=== PATIENT | female | born 1980 | race Caucasian/White ===

== ENCOUNTER 2022-03-02 16:17 | Emergency (ER) | payer SELFPAY ==
--- OUTSIDE RECORDS SUMMARY | 2022-03-02 16:19 | XMS REPORT | Continuity of Care Document ---
:1980 Author Organization [facility] t Address [address] [place] [address] Care Team Providers Name Role Phone MARQUISETAMARAJESSIKA Primary Care Physician Unavailable Manisha REAL Attending Clinician Unavailable Shade KING, S Attending Clinician Milton BRAND S Attending Clinician Manisha WOLF Attending Clinician Unavailable Doctor Unassigned, Name Attending Clinician Unavailable Mag MATA Attending Clinician Unavailable Esperanza KING, L Attending Clinician Payers Payer Name Policy Type Policy Number Effective Date Expiration Date Manisha BARKLEY II [id number] 2016 00:00:00 Problems Condition Condition Condition Status Onset Resolution Last Treating Co mments Source Name Details Category Date Date Treatment Clinician Date No known No known Disease Unive rs active active ity of problems problems [facility] Allergies, Adverse Reactions, Alerts Allergy Allergy Status Severity Reaction(s) Onset Inactive Treating Comm ents Source Name Type Date Date Clinician Fentanyl Propensi Active Palpitations 2016-09 Univers ty to 2-08 ity of adverse 00:00: [place] reaction 00 Medical s Branch FENTANYL DRUG Active Palpitations 2016-09 Un arya INGREDI 2-08 ity of 00:00: [place] [id number] [address] [place] Social History Social Habit Start Date Stop Date Quantity Comments Source Exposure to Unable to assess Univers ity of SARS-CoV-2 [facility] (event) Branch Tobacco use and 2020-10-31 2020-10-31 Never used Universit y of exposure 00:00:00 00:00:00 [facility] Sex Assigned At [birth year] Universit y of 00:00:00 00:00:00 [facility] Smoking Status Start Date Stop Date Source Never smoker [facility] Branch Medications Ordered Filled Start Stop Current Ordering Indication Dosage Frequency Signature Comments Components Source Medication Medication Date Date Medication? Clinician (SIG) Name Name traMADoL 50 2020-0 Yes 4647 50mg Take 1 Univ ers mg tablet 2-09 tablet by ity o f 00:00: mouth [place] 00 every 4 Medical (four) Branch hours as needed for Pain (scale 7-10). Indication s: acute pain traMADoL 50 2020-0 Yes 4647 50mg Take 1 Univ ers mg tablet 2-09 tablet by ity o f 00:00: mouth [place] 00 every 4 Medical (four) Branch hours as needed for Pain (scale 7-10). Indication s: acute pain traMADoL 50 2020-0 Yes 4647 50mg Take 1 Univ ers mg tablet 2-09 tablet by ity o f 00:00: mouth [place] 00 every 4 Medical (four) Branch hours as needed for Pain (scale 7-10). Indication s: acute pain traMADoL 50 2020-0 Yes 4647 50mg Take 1 Univ ers mg tablet 2-09 tablet by ity o f 00:00: mouth [place] 00 every 4 Medical (four) Branch hours as needed for Pain (scale 7-10). Indication s: acute pain traMADoL 50 2020-0 Yes 4647 50mg Take 1 Univ ers mg tablet 2-09 tablet by ity o f 00:00: mouth [place] 00 every 4 Medical (four) Branch hours as needed for Pain (scale 7-10). Indication s: acute pain traMADoL 50 2020-0 Yes 4647 50mg Take 1 Univ ers mg tablet 2-09 tablet by ity o f 00:00: mouth [place] 00 every 4 Medical (four) Branch hours as needed for Pain (scale 7-10). Indication s: acute pain traMADoL 50 2020-0 Yes 4647 50mg Take 1 Univ ers mg tablet 2-09 tablet by ity o f 00:00: mouth [place] 00 every 4 Medical (four) Branch hours as needed for Pain (scale 7-10). Indication s: acute pain traMADoL 50 2020-0 Yes 4647 50mg Take 1 Univ ers mg tablet 2-09 tablet by ity o f 00:00: mouth [place] 00 every 4 Medical (four) Branch hours as needed for Pain (scale 7-10). Indication s: acute pain traMADoL 50 2020-0 Yes 4647 50mg Take 1 Univ ers mg tablet 2-09 tablet by ity o f 00:00: mouth [place] 00 every 4 Medical (four) Branch hours as needed for Pain (scale 7-10). Indication s: acute pain traMADoL 50 2020-0 Yes 4647 50mg Take 1 Univ ers mg tablet 2-09 tablet by ity o f 00:00: mouth [place] 00 every 4 Medical (four) Branch hours as needed for Pain (scale 7-10). Indication s: acute pain traMADoL 50 2020-0 Yes 4647 50mg Take 1 Univ ers mg tablet 2-09 tablet by ity o f 00:00: mouth [place] 00 every 4 Medical (four) Branch hours as needed for Pain (scale 7-10). Indication s: acute pain Vital Signs Vital Name Observation Time Observation Value Comments Source Systolic blood 2021-05-01 154 mm[Hg] reports she is University of pressure 21:07:00 under a lot [place] Medical stress / no Branch repeat on b/p Diastolic blood 2021-05-01 106 mm[Hg] reports she is University of pressure 21:07:00 under a lot [place] Medical stress / no Branch repeat on b/p Heart rate 2021-05-01 75 /min University of 21:07:00 [facility] Body height 2021-05-01 165.1 cm University of 21:07:00 [facility] Body weight 2021-05-01 86.183 kg University of 21:07:00 [facility] BMI 2021-05-01 31.62 kg/m2 University of 21:07:00 [facility] Systolic blood 2020-11-24 124 mm[Hg] University of pressure 16:00:00 [facility] Diastolic blood 2020-11-24 83 mm[Hg] University o f pressure 16:00:00 [facility] Heart rate 2020-11-24 84 /min University of 16:00:00 [facility] Body height 2020-11-24 165.1 cm University of 16:00:00 [facility] Body weight 2020-11-24 87.544 kg University of 16:00:00 [facility] BMI 2020-11-24 32.12 kg/m2 University of 16:00:00 [facility] Procedures Procedure Date / Time Performed Performing Clinician Kavin e XR FOOT 3+ VW RIGHT 2021-05-01 20:48:10 Lia Wolf [facility] ASSIGNMENT OF BENEFITS 2021-05-01 20:21:23 Doctor Unassigned, No [facility] Name Medical Branch EXTERNAL PROVIDER 2020-11-13 06:01:00 Doctor Unassigned, No [facility] RECORDS Name Medical Branch XR HAND <3 VW RIGHT 2020-10-31 19:26:48 [facility] Start End Encounter Admission Attending Care Care Encounter Source Date/Time Date/Time Type Type Clinicians Facility Department ID 2021-09-02 2021-09-02 [facility] [id number] Univers 04:39:00 04:50:00 DENILSON [facility] 2021-09-02 2021-09-02 Emergency [facility] [id number] Univers 04:39:00 04:50:00 Denilson TAPIA [id number] [facility] [id number] [facility] [id number] [facility] [address] [place] 2021-05-01 2021-05-01 [facility] [id number] Univers 15:25:11 23:59:00 Encounter Lia Tapia [id number] ity of [place] 4.2.7.2.686 [facility] [phone] [facility] [address] [place] 2021-05-01 2021-05-01 Office [facility] [id number] Univers 15:58:04 16:45:09 Visit Lia Dyer [facility] [id number] it y of Surgical [id number] Krish as Specialti [phone] Pa dical es [address] [facility] 2021-05-01 2021-05-01 [facility]patient [facility] [id number] Univers 15:45:00 15:45:00 [facility] [id number] [place] [facility] 2021-05-01 2021-05-01 [facility] [id number] Univers 00:00:00 00:00:00 LIA [facility] 2021-05-01 2021-05-01 [facility] [id number] Univers 00:00:00 00:00:00 Lia [facility] [id number] it y of Surgical [id number] Krish as Specialti [phone] Pa dical es [address] [facility] 2021-05-01 2021-05-01 Orders Doctor DUC [id number] Univers 00:00:00 00:00:00 Only Unassigned, RENETTA [id number] ity of [place] [facility] 4.2.7.2.686 Krish as [id number] [address] 2020-11-24 2020-11-24 Outpatient [facility] [id number] Univers 10:31:25 23:59:00 PREM [facility] 2020-11-24 2020-11-24 [facility] [id number] Univers 10:31:25 23:59:00 Encounter Prem Hathaway [facility] [id number] ity of Surgical [id number] Krish as Specialti [phone] Pa dical es [address] [facility] 2020-11-24 2020-11-24 Office [facility] [id number] Univers 09:51:35 10:40:52 Visit Prem Hathaway [facility] [id number] it y of Surgical [id number] Krish as Specialti [phone] Pa dical es [address] [facility] 2020-11-24 2020-11-24 [facility] [id number] Univers 10:30:00 10:30:00 PREM Berger305 [facility] 2020-11-21 2020-11-21 Outpatient [facility] [id number] Univers 13:00:00 13:00:00 LIA Berger302 [facility] 2020-11-21 2020-11-21 Outpatient [facility] [id number] Univers 13:00:00 13:00:00 LIA [facility] 2020-11-13 2020-11-13 Orders Doctor DUC [id number] Univers 00:00:00 00:00:00 Only Unassigned, RENETTA [id number] ity of [place] [facility] 4.2.7.2.686 Krish as [id number] [address] 2020-10-31 2020-10-31 [facility] [id number] Univers 13:26:47 23:59:00 Encounter Lia [facility] [id number] ity of Surgical 4.2.7.2.686 Krish as Specialti [phone] Pa dical es 8[address] [facility] 2020-10-31 2020-10-31 Outpatient Erik WOLF [facility] [id number] Univers 15:00:00 15:00:00 [facility] [id number] [facility] 2020-10-31 2020-10-31 Outpatient [facility] [id number] Univers 15:00:00 15:00:00 [facility] Results Test Description Test Time Test Comments Results Result Sour e Comments XR FOOT 3+ VW 2021-04-22 No appreciable Univers ity of RIGHT 0 fracture lines. RL: [facility] 21:39:57 6200 Electronically [facility] h signed by Duc Linares MD at 05/01/2021 4:39 PM CLINICAL HISTORY:Pain. COMPARISON:none TECHNIQUE:XR FOOT 3+ VW RIGHT performed. Technical Quality: Adequate FINDINGS:There are no appreciable fracture lines or subluxations. ?There is grossanatomic alignment. ?No appreciable joint effusion. [facility], Radiant Results Inft User - 05/01/2021 4:41 PM CDT CLINICAL HISTORY:Pain.COMPAR ONIEL:noneTECHNIQUE: XR FOOT 3+ VW RIGHT performed. Technical Quality: AdequateFINDINGS:Th ere are no appreciable fracture lines or subluxations. There is grossanatomic alignment. No appreciable joint effusion.IMPRESSION No appreciable fracture lines.RL: 6200 HAND <3 VW Right hand she has Uni versity of RIGHT 9 a transverse [place] Medica l 20:01:07 fracture of the Branch metaphyseal diaphyseal junction of the proximal fifth metacarpal there is some slight displacement from the previous paper film that we saw from a week ago but her fracture is still in acceptable alignment no callus formation.
[2022-03-02 16:40] LABS: Absolute Lymphocytes (CBC) 0.9 K/uL (0.7-4.9); Hematocrit 32.5 % (36.0-45.0); Lymphocytes % 9.1 % (15.3-44.8); MPV 6.5 fL (7.6-11.3); RBC Red Blood Cell Count 3.84 M/uL (3.86-4.86)
[2022-03-02 16:49] LABS: Urine Blood Negative (Negative); Urine Glucose Negative (Negative); Urine Protein Negative (Negative); Urine Specific Gravity <=1.005 (1.005-1.030); Urine pH 5.5 (5.0-7.0)
[2022-03-02 17:02] LABS: Thyroid Stimulating Hormone 0.921 uIU/mL (0.360-3.740); Troponin High Sensitivity 4.6 pg/mL (<58.9)
--- NOTE | 2022-03-02 17:45 | RAD REPORT ---
EXAM DESCRIPTION: RAD - Chest Single View - 03/02/2022 5:32 pm CLINICAL HISTORY: CHEST PAIN COMPARISON: Two view chest 03/01/2011 TECHNIQUE: AP portable chest image was obtained 03/02/2022 5:32 pm . FINDINGS: Lungs are clear. Heart and vasculature are normal. No measurable pleural effusion and no p neumothorax. No acute bony abnormality seen. No acute aortic findings suspected. IMPRESSION: No acute cardiopulmonary process. No significant change from comparison study.
--- NOTE | 2022-03-02 18:28 | EDPHYS ---
Physician Documentation [facility] Name: Belle Luciano Age: 41 yrs Sex: Female : 1980 Arrival Date: 03/02/2022 Time: 16:21 Bed 8 Private MD: ED Physician Matthew Longo HPI: 03/02 17:57 This 41 yrs old Female presents to ER via EMS with complaints of Chest Pain. kb 17:57 The patient presents with a history of heart racing. Context: The symptoms occur at kb rest. Onset: The symptoms/episode began/occurred 2 hours sloop captain. Duration: The patient or guardian reports a single episode. Modifying factors: The symptoms are aggravated by anxiety, The symptoms are alleviated by nothing. Associated signs and symptoms: Pertinent positives: anxiety, chest pain. Severity of symptoms: At their worst the symptoms were moderate in the emergency department the symptoms have improved. The patient has experienced similar episodes in the past. The patient has been recently seen by a physician:. Pt reports she felt her blood pressure go up, then her heart rate, then she started having tightening in her chest. States she has had this same thing happen 4 times in the past couple of months. Has been seen by cardiology who did an US and put her on a holter monitor. States nothing was found on their tests. 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 - Social history:: Smoking status: Reported history of juuling and/or vaping. Patient uses alcohol, on a daily basis. ROS: 17:56 Constitutional: Negative for fever, chills, and weight loss. kb 17:56 Cardiovascular: Positive for chest pain, palpitations, Negative for edema, orthopnea, paroxysmal nocturnal dyspnea. 17:56 Psych: Positive for anxiety, Negative for depression, drug dependence, alcohol dependence, auditory hallucinations, visual hallucinations, homicidal ideation, insomnia, suicide gesture, suicidal ideation. 17:56 All other systems are negative. Exam: 16:28 Constitutional: This is a well developed, well nourished patient who is awake, alert, kb and in no acute distress. Head/Face: Normocephalic, atraumatic. ENT: Moist Mucous membranes Cardiovascular: Regular rate and rhythm with a normal S1 and S2. No gallops, murmurs, or rubs. No pulse deficits. Respiratory: Respirations even and unlabored. No increased work of breathing. Talking in full sentences Abdomen/GI: Soft, non-tender. No distention Skin: Warm, dry with normal turgor. Normal color. MS/ Extremity: Pulses equal, no cyanosis. Neurovascular intact. Full, normal range of motion. Neuro: Awake and alert, GCS 15, oriented to person, place, time, and situation. Moves all extremities. Normal gait. Psych: Awake, alert, with orientation to person, place and time. Behavior, mood, and affect are within normal limits. 16:28 ECG was reviewed by the Attending Physician. Vital Signs: 16:24 BP 142 / 111; Pulse 87; Pulse Ox 100% ; Weight 81.65 kg; Height 5 ft. 5 in. (165.10 cm);ap3 16:24 Resp 20 S; Temp 98.6(O); aa5 17:01 BP 146 / 88; Pulse 90; Resp 16 S; Pulse Ox 99% on R/A; aa5 17:38 BP 152 / 86; Pulse 81; Pulse Ox 98% on R/A; ap3 18:18 BP 130 / 73; Pulse 78; Pulse Ox 98% on R/A; ap3 16:24 Body Mass Index 29.95 (81.65 kg, 165.10 cm) ap3 MDM: 16:22 Patient medically screened. kb 16:29 Data reviewed: vital signs, nurses notes. Data interpreted: Pulse oximetry: on room air kb is 100 %. Interpretation: normal. 18:03 Counseling: I had a detailed discussion with the patient and/or guardian regarding: the kb historical points, exam findings, and any diagnostic results supporting the discharge/admit diagnosis, lab results, radiology results, the need for outpatient follow up, a front office clerk, a family practitioner, to return to the emergency department if symptoms worsen or persist or if there are any questions or concerns that arise at home. ED course: Heart score 0. 18:27 ED course: Pt states she feels back to normal now. States "this is how it always is, it kb lasts about 4 hours and goes away.". 03/02 16:23 Order name: Basic Metabolic Panel; Complete Time: 17:03 kb 03/02 16:23 Order name: CBC with Diff; Complete Time: 16:48 kb 03/02 16:23 Order name: D-Dimer; Complete Time: 16:48 kb 03/02 16:23 Order name: Troponin HS; Complete Time: 17:03 kb 03/02 16:23 Order name: TSH; Complete Time: 17:03 kb 03/02 16:50 Order name: Urine Dipstick-Ancillary; Complete Time: 16:53 EDMS 03/02 16:23 Order name: XRAY Chest (1 view); Complete Time: 17:51 kb 03/02 16:23 Order name: EKG; Complete Time: 16:24 kb 03/02 16:23 Order name: Cardiac monitoring; Complete Time: 16:29 kb 03/02 16:23 Order name: EKG - Nurse/Tech; Complete Time: 16:29 kb 03/02 16:23 Order name: IV Saline Lock; Complete Time: 16:29 kb 03/02 16:23 Order name: Labs collected and sent; Complete Time: 16:29 kb 03/02 16:23 Order name: O2 Per Protocol; Complete Time: 16:29 kb 03/02 16:23 Order name: O2 Sat Monitoring; Complete Time: 16:29 kb EC:28 Rate is 90 beats/min. Rhythm is regular. QRS [place] is Normal. [place] interval is normal at kb 134 msec. QRS interval is normal at 78 msec. QT interval is normal at 428 msec. Administered Medications: No medications were administered Disposition: 03/03 08:11 Co-signature as Attending Physician, Matthew Longo MD I agree with the assessment and kdr plan of care. Disposition Summary: 03/02/22 18:27 Discharge Ordered Location: Home kb Condition: Stable kb Diagnosis - Chest pain, unspecified kb Followup: kb - With: Emergency Department - When: As needed - Reason: Worsening of condition Followup: kb - With: Private Physician - When: 2 - 3 days - Reason: Recheck today's complaints, Continuance of care, Re-evaluation by your physician Discharge Instructions: - Discharge Summary Sheet kb - Nonspecific Chest Pain, Adult, [id number] kb Forms: - Medication Reconciliation Form kb - Thank You Letter kb - Antibiotic Education kb - Prescription Opioid Use kb Signatures: Dispatcher [employer] EDAlexandra Carr, Matthew Suresh MD MD kdr Prokisch, Amanda RN RN ap3 Corrections: (The following items were deleted from the chart) 03/02 17:55 17:52 Counseling: I had a detailed discussion with the patient and/or guardian hal regarding: the historical points, exam findings, and any diagnostic results supporting the discharge/admit diagnosis, lab results, radiology results, the need for outpatient follow up, a front office clerk, to return to the emergency department if symptoms worsen or persist or if there are any questions or concerns that arise at home, hal
--- NOTE | 2022-03-02 18:28 | ER ---
Nurse's Notes [facility] Name: Belle Luciano Age: 41 yrs Sex: Female : 1980 Arrival Date: 03/02/2022 Time: 16:21 Bed 8 Private MD: Diagnosis: Chest pain, unspecified Presentation: 03/02 16:24 Chief complaint: Patient states: approx 2 hours ago, she noticed her blood pressure was ap3 high and she started feeling chest pressure with nausea and a "warming feeling". Patient states that this is the 4th time this has occurred in the last few months. Coronavirus screen: At this time, the client does not indicate any symptoms associated with coronavirus-19. Ebola Screen: No symptoms or risks identified at this time. Initial Sepsis Screen: Does the patient meet any 2 criteria? No. Patient's initial sepsis screen is negative. Does the patient have a suspected source of infection? No. Patient's initial sepsis screen is negative. Risk Assessment: Do you want to hurt yourself or someone else? Patient reports no desire to harm self or others. Onset of symptoms was March 02, 2022 at 14:00. 16:24 Method Of Arrival: EMS: [facility] ap3 16:24 Acuity: HUEY 2 ap3 Triage Assessment: 16:28 General: Appears in no apparent distress. uncomfortable, Behavior is cooperative. Pain: ap3 Complains of pain in chest Pain began gradually, 2 hours ago. Also complains of nausea. Neuro: Level of Consciousness is awake, alert, obeys commands, Oriented to person, place, time, situation, Appropriate for age Speech is normal. Cardiovascular: Reports chest pain, lightheadedness, nausea, Patient's skin is warm and dry. Respiratory: Airway is patent Respiratory effort is even, unlabored, Respiratory pattern is regular, symmetrical. 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 - Social history:: Smoking status: Reported history of juuling and/or vaping. Patient uses alcohol, on a daily basis. Screenin:28 Abuse screen: Denies threats or abuse. Nutritional screening: No deficits noted. ap3 Tuberculosis screening: No symptoms or risk factors identified. Fall Risk None identified. Assessment: 16:25 General: Appears comfortable, Behavior is calm, cooperative. Pain: Complains of pain in aa5 chest Pain currently is 0 out of 10 on a pain scale. Quality of pain is described as sharp, Pain began 2 hours ago. Is episodic. Neuro: Level of Consciousness is awake, alert, obeys commands, Oriented to person, place, time, situation. Cardiovascular: Reports chest pain, Heart tones S1 S2 present Rhythm is regular. Respiratory: Airway is patent Respiratory effort is even, unlabored, Respiratory pattern is regular, symmetrical, Breath sounds are clear bilaterally. GI: Abdomen is round non-distended, Bowel sounds present X 4 quads. Abd is soft and non tender X 4 quads. Reports nausea. : No signs and/or symptoms were reported regarding the genitourinary system. EENT: No signs and/or symptoms were reported regarding the EENT system. Derm: Skin is pink, warm \\T\\ dry. Musculoskeletal: Range of motion: intact in all extremities. 16:41 General: patient provided with a urine specimen container, and education on proper ap3 urine collection. patient verbalized understanding. 17:00 Reassessment: Patient is alert, oriented x 3, equal unlabored respirations, skin aa5 warm/dry/pink. Pt reports chest pain has been coming and going since previous assessment. . 18:18 Reassessment: Patient and/or family updated on plan of care and expected duration. Pain ap3 level reassessed. Patient is alert, oriented x 3, equal unlabored respirations, skin warm/dry/pink. Vital Signs: 16:24 BP 142 / 111; Pulse 87; Pulse Ox 100% ; Weight 81.65 kg; Height 5 ft. 5 in. (165.10 cm);ap3 16:24 Resp 20 S; Temp 98.6(O); aa5 17:01 BP 146 / 88; Pulse 90; Resp 16 S; Pulse Ox 99% on R/A; aa5 17:38 BP 152 / 86; Pulse 81; Pulse Ox 98% on R/A; ap3 18:18 BP 130 / 73; Pulse 78; Pulse Ox 98% on R/A; ap3 16:24 Body Mass Index 29.95 (81.65 kg, 165.10 cm) ap3 ED Course: 16:21 Patient arrived in ED. eb 16:22 Alexandra Barraza FNP-C [facility]. kb 16:22 Matthew Longo MD is Attending Physician. kb 16:26 Triage completed. ap3 16:28 Kandace Bishop, RN is Primary Nurse. aa5 16:29 Initial lab(s) drawn, by me, sent to lab. Inserted saline lock: 20 gauge in left aa5 antecubital area, using aseptic technique. Blood collected. 16:30 Arm band placed on right wrist. ap3 16:30 Patient has correct armband on for positive identification. Placed in gown. Bed in low ap3 position. Call light in reach. Side rails up X2. Adult w/ patient. phototypesetting equipment monitor on. Pulse ox on. NIBP on. Door closed. Noise minimized. 16:48 XRAY Chest (1 view) In Process Unspecified. EDMS 18:59 No provider procedures requiring assistance completed. IV discontinued, intact, ap3 bleeding controlled, No redness/swelling at site. Pressure dressing applied. Administered Medications: No medications were administered Medication: 16:30 VIS not applicable for this client. ap3 Outcome: 18:27 Discharge ordered by . kb 18:59 Discharged to home ambulatory. ap3 18:59 Condition: good 19:00 Discharge instructions given to patient, Instructed on discharge instructions, follow ap3 up and referral plans. Demonstrated understanding of instructions, follow-up care. 19:00 Patient left the ED. ap3 Signatures: Dispatcher [employer] EDMS Alexandra Barraza FNP-C FNP-Kandace Quinn, RN RN aa5 Ligia Joya RN RN ap3 Katie Carnes Corrections: (The following items were deleted from the chart) 19:42 17:01 BP 146 / 88; Pulse 90bpm; Pulse Ox 99% RA; ap3 aa5
[2022-03-02 19:52] VITALS: TEMP 98.6
[2022-03-02 19:54] VITALS: O2SAT 98
[2022-03-02 19:55] VITALS: BP 130/73
--- NOTE | 2022-03-04 13:38 | EKG ---
Test Date: 2022-03-02 Test Time: 16:21:28 Manager Lsw: ANUM MEASUREMENT RESULTS: Intervals: Rate: 90 NH: 134 QRSD: 78 QT: 350 QTc: 428 [place]: P: 61 NH: 134 QRS: 54 T: 59 INTERPRETIVE STATEMENTS: Normal sinus rhythm Normal ECG No previous ECG available for comparison Electronically Signed On 03-04-22 13:35:14 CDT by Sushant Jackson
== END 2022-03-02 19:00 | disposition home or self-care (01) ==
LOC: ER 16:17
DX: R07.9 Chest pain, unspecified (principal); I10 Essential (primary) hypertension; Z88.5 Allergy status to narcotic agent
CPT/HCPCS: 36415; 71045; 80048; 81003; 84443; 84484; 85025; 85379; 93005; 99284